=== PATIENT | male | born 1990 | race Caucasian/White ===

== ENCOUNTER 2016-10-23 08:51 | Emergency (ER) | payer MEDICARE ==
[~2016-10-23] VITALS: Ht 180.3 cm; Wt 90.7 kg
--- NOTE | 2016-10-23 09:22 | PHYS DOC ---
General Chief Complaint: FOOT INJURY PAIN Stated Complaint: FOOT PAIN Time Seen by MD: 09:07 Source: patient Exam Limitations: no limitations Problems: History of Present Illness Initial Comments Patient is a 26-year-old male who comes in the ED with a left foot plantar puncture wound. Patient states that yesterday he was working outdoors and accidentally stepped on a nail. He says the nail penetrated through his boot and into his forefoot. He says he doesn't think he got very deep because he immediately withdrew his foot from the pain. He had some minor discomfort at the time however this morning he noticed some redness and increased tenderness. He denies any drainage denies fever chills nausea or lethargy. He can't remember his last tetanus so he went to [facility] to try to get tetanus vaccination but they sent him here for further evaluation. He says he looked at the nail it was complete and he is confident there are no foreign bodies remaining in his foot. He is able to walk with some tenderness but doesn't want any pain medications. 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 No pre-arrival treatment he washed it off briefly last night. Onset: yesterday Severity: moderate Pain/Injury Location: left foot Method of Injury: other Modifying Factors: worse with jarring, worse with movement, improves with rest Allergies: Coded Allergies: No Known Drug Allergies (Unverified , 10/23/16) Past Medical History Medical History: no pertinent history Surgical History: noncontributory Social History Smoker: cigarettes Alcohol: occasionally Drugs: none Review of Systems Constitutional: denies chills, denies diaphoresis, denies fever, denies malaise Respiratory: denies cough, denies shortness of breath Cardiovascular: denies chest pain, denies palpitations Gastrointestinal: denies nausea, denies vomiting Musculoskeletal: see HPI Skin: see HPI Physical Exam General Appearance: WD/WN, no apparent distress HEENT: PERRL/EOMI, normal ENT inspection Neck: non-tender, supple Cardiovascular/Respiratory: normal peripheral pulses, no respiratory distress Back: no CVA tenderness, no vertebral tenderness Feet: left foot other (plantar puncture wound at the forefoot with 1 cm halo of erythema. The area is tender there is no purulence no discharge no induration no palpable subcutaneous foreign body.) Orders, Labs, Meds Wound was soaked in Betasept the patient received Rocephin and tetanus vaccination. The patient was advised to stop smoking. Departure Time of Disposition: :19 Disposition: 01 HOME, SELF-CARE Diagnosis: plantar puncture wound Condition: GOOD Patient Instructions: Puncture Wound, [id number], VIS, Tetanus, Diphtheria ( Td); Tetanus, Diphtheria, Pertussis (Tdap) - [facility] [place] Additional Instructions: He covered with sterile dressing until healed. Wash twice daily with soap and warm water. Change dressing and apply Bactroban ointment after each wash. Allow the wound to air dry 1 hour daily. [id number] Tylenol and ibuprofen as needed. Prescription: Bactrim DS, Bactroban ointment Stop smoking seek medical assistance if necessary. You'll need to follow up with a primary care doctor for recheck. As you do not have one ED staff can give you a list of doctors in the area and may be able to guide you to those accepting walk-in appointments. Follow-up with a doctor in 3-5 days for a wound check. Return to ED with new or changing symptoms. JOSI LANDRUM DO Oct 23, 2016 09:22
[2016-10-23] MEDS ORDERED: SULF1TAB24 PO (09:24)
[2016-10-23] MEDS ORDERED: MUPI15CR TP (09:24)
[2016-10-23] MEDS ORDERED: cefTRIAXone IM 1 GM VIAL IM ONE (09:40)
[2016-10-23] MEDS ORDERED: DIPHTH,PERTUSS(ACELL),TET TOX 0.5 ML DISP.SYRIN. VAX IM ONE (09:40)
[2016-10-23 10:00] VITALS: BP 123/72
== END 2016-10-23 10:02 | disposition home or self-care (01) ==
LOC: ER 08:51
DX: S91.332A Puncture wound without foreign body, left foot, initial encounter (principal); F17.210 Nicotine dependence, cigarettes, uncomplicated; W45.0XXA Nail entering through skin, initial encounter; Y93.89 Activity, other specified; Y99.8 Other external cause status; Y92.89 Other specified places as the place of occurrence of the external cause
CPT/HCPCS: 90471; 90715; 96372; 99284; J0696

== ENCOUNTER 2020-11-16 10:22 | Emergency (ER) | payer MEDICARE, OTHER ==
[~2020-11-16] VITALS: Ht 180.3 cm; Wt 104.0 kg
[~2020-11-16 10:22] MED LIST: MUPI15CR TP; SULF1TAB24 PO
[2020-11-16 10:30] VITALS: BP 145/81
--- NOTE | 2020-11-16 10:41 | PHYS DOC ---
Past History Past Medical History: No Pertinent History Past Surgical History: No Surgical History Alcohol Use: Occasionally Drug Use: None Adult General HPI HPI Patient is a 30-year-old male presenting for poison gabrielle exposure. He has known history of this, is highly allergic and has classic skin eruption after prior exposures. Reports he was helping a friend with yard work over the weekend and developed a nonspecific skin rash consistent with prior episodes of poison gabrielle exposure to bilateral upper extremities, bilateral lower extremities, trunk and some portions of his right face. No trouble breathing, no airway involvement or other concerning findings or reported symptoms beyond pruritus. He has not taken anything for this yet. Reports he typically receives a steroid shot and utilizes [id number] topical creams and shampoos etc. Review of Systems Review of Systems Fourteen body systems of review of systems have been reviewed. See HPI for pertinent positives and negative responses, other johansen all other systems are negative, non-pertinent or non-contributory Allergies Allergies Allergies Coded Allergies Type Severity Reaction Last Updated Verified No Known Drug Allergies 10/23/16 No Physical Exam Physical Exam Constitutional: Well developed, well nourished, no acute distress, non-toxic appearance. HENT: Normocephalic, atraumatic, bilateral external ears normal, oropharynx moist, no oral exudates, nose normal. Eyes: PERRLA, EOMI, conjunctiva normal, no discharge. Neck: Normal range of motion, no tenderness, supple, no stridor. Cardiovascular: Heart rate regular, sinus rhythm, no murmurs rubs or gallops Lungs & Thorax: Bilateral breath sounds clear to auscultation Abdomen: Bowel sounds normal, soft, no tenderness, no masses, no pulsatile masses. Nonsurgical abdomen, no peritoneal signs Skin: Warm, dry, no erythema, nonspecific skin rash on bilateral upper extremities, bilateral lower extremities, trunk and right cheek and upper eyelid consistent with poison gabrielle exposure all of which are nonweeping Back: No tenderness, no CVA tenderness. Extremities: No tenderness, no cyanosis, no clubbing, ROM intact, no edema. Neurologic: Alert and oriented X 3, grossly normal motor & sensory function, no focal deficits noted. Psychologic: Affect normal, judgement normal, mood normal. EKG EKG [] Radiology/Procedures Radiology/Procedures [] Heart Score C/O Chest Pain: No Risk Factors: Risk Factors: DM, Current or recent (<one month) smoker, HTN, HLP, family history of CAD, obesity. Risk Scores: Risk Factors: DM, Current or recent (<one month) smoker, HTN, HLP, family history of CAD, obesity. Course & Med Decision Making Course & Med Decision Making ABCs unremarkable. I disclosed entirety of ER findings and discussed most likely diagnosis of poison gabrielle exposure. 10 mg IM Decadron administered with instructions for continued supportive care practices. Plan of care discussed at length with need for close outpatient follow-up to review today's ER visit stressed. Strict return precautions were also discussed at length with good understanding verbalized by patient. Patient voiced understanding and agreement with the plan. Patient knows to come back for repeat evaluation if concerning signs or symptoms present prior to outpatient follow-up. Hemodynamically stable, ambulatory and well-appearing at time of disposition. Dragon Disclaimer Dragon Disclaimer This electronic medical record was generated, in whole or in part, using a voice recognition dictation system. Departure Departure: Impression: Primary Impression: Poison gabrielle dermatitis Disposition: HOME / SELF CARE / HOMELESS Condition: STABLE Referrals: PCP,NO (PCP) Patient Instructions: Poison Gabrielle Additional Instructions: You were seen for a rash. This is consistent with poison gabrielle exposure. You were given intramuscular steroids which should last for 3 days total, in the meantime you may take benadryl as needed for itching. Please continue using topical/kqlm-afr-aphphwy soothing body washes and topical creams such as Aquaphor for symptom control. Return to the ED if you develop redness, fever, swelling, pain, or worsening/new symptoms. KETURAH LEACH DO Nov 16, 2020 10:41
[2020-11-16] MEDS ORDERED: DEXAMETHASONE SOD PHOS 10 MG/ML VIAL. IM ONE (10:45)
[2020-11-16] MEDS ORDERED: DEXAMETHASONE SOD PHOS 10 MG/ML VIAL. ONE (10:55)
== END 2020-11-16 11:00 | disposition home or self-care (01) ==
LOC: ER 10:22
DX: L23.7 Allergic contact dermatitis due to plants, except food (principal)
CPT/HCPCS: 96372; 99283; J1100

== ENCOUNTER 2020-11-19 08:06 | Emergency (ER) | payer SELFPAY ==
[~2020-11-19] VITALS: Ht 180.3 cm; Wt 110.2 kg
[2020-11-19] MEDS ORDERED: PRED20TA PO (09:12)
--- NOTE | 2020-11-19 09:13 | PHYS DOC ---
Past History Past Medical History: No Pertinent History Past Surgical History: No Surgical History Alcohol Use: None Drug Use: None General Adult EDM: Chief Complaint: ALLERGIC REACTION HPI: HPI: Patient is a 30-year-old male coming in for continued pruritic rash after clearing out weeds and yard waste few days ago. Patient was seen 3 days ago and given a shot of IM Decadron which that did not help very much. Has been using calamine lotion. No other complaints. Review of Systems: Review of Systems: All other systems within normal limits except for as noted in the HPI Allergies: Allergies: Allergies Coded Allergies Type Severity Reaction Last Updated Verified No Known Drug Allergies 10/23/16 No Physical Exam: PE: Constitutional: Well developed, well nourished, no acute distress, non-toxic appearance. [] HENT: Normocephalic, atraumatic, bilateral external ears normal, nose normal. [] Eyes: PERRLA, conjunctiva normal, no discharge. [] Neck: No rigidity, supple, no stridor. [] Cardiovascular: Regular rate and rhythm, brisk cap refill [] Lungs & Thorax: Non labored symmetric respirations, no tachypnea or respiratory distress [] Abdomen: Soft, nondistended. Skin: Warm, dry, small vesicle rash on bilateral forearms and trunk. Some areas of excoriation in a linear pattern. Back: Unremarkable Extremities: No deformities, range of motion grossly intact, no lower extremity edema [] Neurologic: Alert and oriented X 3, no focal deficits noted. [] Psychologic: Affect normal, judgement normal, mood normal. [] Current Patient Data: Vital Signs: Vital Signs Date Time Temp Pulse Resp B/P (MAP) Pulse Ox O2 Delivery O2 Flow Rate FiO2 11/19/20 08:19 97.6 70 18 122/77 (92) 99 Room Air EKG: EKG: [] Radiology/Procedures: Radiology/Procedures: [] Heart Score: C/O Chest Pain: No Risk Factors: Risk Factors: DM, Current or recent (<one month) smoker, HTN, HLP, family history of CAD, obesity. Risk Scores: Score 0 - 3: 2.5% MACE over next 6 weeks - Discharge Home Score 4 - 6: 20.3% MACE over next 6 weeks - Admit for Clinical Observation Score 7 - 10: 72.7% MACE over next 6 weeks - Early Invasive Strategies Course & Med Decision Making: Course & Med Decision Making Pertinent Labs and Imaging studies reviewed. (See chart for details) [] Екатерина Disclaimer: Екатерина Disclaimer: This electronic medical record was generated, in whole or in part, using a voice recognition dictation system. Departure Departure: Impression: Primary Impression: Poison gabrielle dermatitis Disposition: HOME / SELF CARE / HOMELESS Condition: STABLE Referrals: PCP,NO (PCP) Patient Instructions: Poison Gabrielle Scripts Prednisone (PREDNISONE) 20 Mg Tablet 1 TAB PO UD for steroid for 12 Days, #24 TAB 60 mg x 4 days, 40 mg x 4 days, 20 mg x 4 days. Prov: JOY BOOGIE MD 11/19/20 JOY BOOGIE MD Nov 19, 2020 09:13
[2020-11-19 09:20] VITALS: BP 116/71
== END 2020-11-19 09:25 | disposition home or self-care (01) ==
LOC: ER 08:06
DX: L23.7 Allergic contact dermatitis due to plants, except food (principal)
CPT/HCPCS: 99283

== ENCOUNTER 2020-12-25 06:55 | Emergency (ER) | payer SELFPAY ==
[~2020-12-25] VITALS: Ht 180.3 cm; Wt 95.4 kg
[~2020-12-25 06:55] MED LIST changes: +PRED20TA PO
[2020-12-25 06:57] VITALS: BP 104/53
[2020-12-25] MEDS ORDERED: KETOROLAC 60 MG/2 ML VIAL. IM ONE (07:06)
[2020-12-25] MEDS ORDERED: ONDANSETRON PF 4 MG/2 ML VIAL. ONE (07:10)
[2020-12-25] MEDS ORDERED: ONDANSETRON PF 4 MG/2 ML VIAL. IVP ONE (07:15)
[2020-12-25] MEDS ORDERED: KETOROLAC 15 MG/ML VIAL. IVP ONE (07:15)
[2020-12-25] MEDS ORDERED: IOHEXOL 300 MG/ML 75 ML VIAL. IV ONE (07:15)
[2020-12-25] MEDS ORDERED: IV NORMAL SALINE 1,000ML 1,000 ML IV ONE (07:15)
--- NOTE | 2020-12-25 07:20 | PHYS DOC ---
Past History Past Medical History: No Pertinent History Past Surgical History: No Surgical History Alcohol Use: None Drug Use: None Adult General HPI HPI Patient is a 30-year-old male presenting for right flank pain. Onset was 1 hour ago and awoke him from sleep. Nothing known makes better or worse. Reports sharp stabbing pain to right flank that radiates into her right groin. Severity of pain is 10/10 and constant. Reports he has been nauseous and had several episodes of nonbloody nonbilious emesis since symptom onset. He has never felt anything like this. Admits smoking weed but no other medical issues, no known medical diagnoses and takes no medications on a daily basis. He has no history of any intra-abdominal abnormalities or surgeries Review of Systems Review of Systems Fourteen body systems of review of systems have been reviewed. See HPI for pertinent positives and negative responses, other johansen all other systems are negative, non-pertinent or non-contributory Current Medications Current Medications Current Medications Medications (Trade) Dose Ordered Sig/Nguyen Start Time Stop Time Status Last Admin Dose Admin Fentanyl Citrate (Fentanyl 2ml Vial) 100 mcg STK-MED ONCE 12/25/20 07:06 12/25/20 07:06 DC Ketorolac Tromethamine (Toradol Im) 60 mg STK-MED ONCE 12/25/20 07:06 12/25/20 07:06 AK Allergies Allergies Allergies Coded Allergies Type Severity Reaction Last Updated Verified No Known Drug Allergies 10/23/16 No Physical Exam Physical Exam Constitutional: Well developed, well nourished, in moderate distress due to pain but is overall nontoxic in appearance HENT: Normocephalic, atraumatic, bilateral external ears normal, oropharynx moist, no oral exudates, nose normal. Eyes: PERRLA, EOMI, conjunctiva normal, no discharge. Neck: Normal range of motion, no tenderness, supple, no stridor. Cardiovascular: Heart rate regular, sinus rhythm, no murmurs rubs or gallops Lungs & Thorax: Bilateral breath sounds clear to auscultation Abdomen: Bowel sounds normal, soft, suprapubic tenderness with palpation, guarding present without rebound no masses, no pulsatile masses. Nonsurgical abdomen, no peritoneal signs Skin: Warm, dry, no erythema, no rash. Back: No tenderness, right CVA tenderness Extremities: No tenderness, no cyanosis, no clubbing, ROM intact, no edema. Neurologic: Alert and oriented X 3, grossly normal motor & sensory function, no focal deficits noted. Psychologic: Anxious affect and mood Current Patient Data Vital Signs Vital Signs Date Time Temp Pulse Resp B/P (MAP) Pulse Ox O2 Delivery O2 Flow Rate FiO2 12/25/20 07:14 20 96 Vital Signs Date Time Temp Pulse Resp B/P (MAP) Pulse Ox O2 Delivery O2 Flow Rate FiO2 12/25/20 07:14 20 96 Lab Results Laboratory Tests Test 12/25/20 07:06 12/25/20 07:46 White Blood Count 11.9 x10^3/uL Red Blood Count 5.52 x10^6/uL Hemoglobin 16.0 g/dL Hematocrit 47.6 % Mean Corpuscular Volume 86 fL Mean Corpuscular Hemoglobin 29 pg Mean Corpuscular Hemoglobin Concent 34 g/dL Red Cell Distribution Width 13.9 % Platelet Count 311 x10^3/uL Neutrophils (%) (Auto) 53 % Lymphocytes (%) (Auto) 36 % Monocytes (%) (Auto) 7 % Eosinophils (%) (Auto) 3 % Basophils (%) (Auto) 1 % Neutrophils # (Auto) 6.3 x10^3uL Lymphocytes # (Auto) 4.2 x10^3/uL Monocytes # (Auto) 0.9 x10^3/uL Eosinophils # (Auto) 0.4 x10^3/uL Basophils # (Auto) 0.1 x10^3/uL Sodium Level 139 mmol/L Potassium Level 4.1 mmol/L Chloride Level 103 mmol/L Carbon Dioxide Level 28 mmol/L Anion Gap 8 Blood Urea Nitrogen 14 mg/dL Creatinine 1.0 mg/dL Estimated GFR (Cockcroft-Gault) 88.3 BUN/Creatinine Ratio 14 Glucose Level 112 mg/dL Calcium Level 9.3 mg/dL Total Bilirubin 0.5 mg/dL Aspartate Amino Transf (AST/SGOT) 27 U/L Alanine Aminotransferase (ALT/SGPT) 58 U/L Alkaline Phosphatase 111 U/L Total Protein 8.0 g/dL Albumin 4.2 g/dL Albumin/Globulin Ratio 1.1 Lipase 85 U/L Urine Collection Type Unknown Urine Color Yellow Urine Clarity Clear Urine pH 5.0 Urine Specific [place] 1.020 Urine Protein Neg Urine Glucose (UA) Neg mg/dL Urine Ketones (Stick) Neg mg/dL Urine Blood Large Urine Nitrite Neg Urine Bilirubin Neg Urine Urobilinogen Dipstick 0.2 mg/dL Urine Leukocyte Esterase Neg Urine RBC 11-20 /HPF Urine WBC Occ /HPF Urine Bacteria 0 /HPF Urine Mucus Marked /LPF Current Medications Medications (Trade) Dose Ordered Sig/Nguyen Route PRN Reason Start Time Stop Time Status Last Admin Dose Admin Ketorolac Tromethamine (Toradol Im) 60 mg STK-MED ONCE IM 12/25/20 07:06 12/25/20 07:06 DC Fentanyl Citrate (Fentanyl 2ml Vial) 100 mcg STK-MED ONCE .ROUTE 12/25/20 07:06 12/25/20 07:06 DC Sodium Chloride 1,000 ml @ 1,000 mls/hr 1X ONCE IV 12/25/20 07:15 12/25/20 08:14 DC 12/25/20 07:13 Fentanyl Citrate (Fentanyl 2ml Vial) 50 mcg 1X ONCE IVP 12/25/20 07:15 12/25/20 07:18 DC 12/25/20 07:14 Ketorolac Tromethamine (Toradol 15mg Vial) 15 mg 1X ONCE IVP 12/25/20 07:15 12/25/20 07:18 DC Ondansetron HCl (Zofran) 4 mg STK-MED ONCE .ROUTE 12/25/20 07:10 12/25/20 07:11 DC Ondansetron HCl (Zofran) 4 mg 1X ONCE IVP 12/25/20 07:15 12/25/20 07:18 DC 12/25/20 07:13 Iohexol (Omnipaque 300 Mg/ml) 75 ml 1X ONCE IV 12/25/20 07:15 12/25/20 07:18 DC 12/25/20 07:31 Fentanyl Citrate (Fentanyl 2ml Vial) 50 mcg 1X ONCE IVP 12/25/20 07:45 12/25/20 07:46 DC Tamsulosin HCl (Flomax) 0.4 mg 1X ONCE PO 12/25/20 08:30 12/25/20 08:31 DC EKG EKG [] Radiology/Procedures Radiology/Procedures EXAM: CT Abdomen and Pelvis with IV contrast CLINICAL HISTORY: right abd/flank pain COMPARISON: none TECHNIQUE: Helical CT of the abdomen and pelvis was performed following the ad ministration of intravenous contrast. Axial, coronal and sagittal reformatted images were generated. PQRS compliance statement - One or more of the following individualized dose reduction techniques were utilized for this study: 1. Automated exposure control 2. Adjustment of the mA and/or kV according to patient size 3. Use of iterative reconstruction technique FINDINGS: Lower Chest: Linear and patchy opacities lung bases likely scarring/atelectasis. Abdomen and Pelvis: Hepatic hypoattenuation, fatty liver. Gallbladder is normal. No biliary duct dilatation. Pancreas is unremarkable. Spleen is normal in appearance. Adrenal gl ands are unremarkable. Mildly delayed right nephrogram. No focal renal lesion. A 3 mm calculus is seen at the right ureterovesicular junction with mild right hydronephrosis and hydroureter. No left hydronephrosis or hydroureter. Appendix is normal. Moderate colonic stool content is seen. No small or large bowel dilatation. No bowel obstruction. No abdominal or pelvic ascites. No abdominal or pelvic lymphadenopathy. Sclerotic focus bilateral femoral neck, bone island. Trace fat-containing periumbilical hernia. Bones: No aggressive osseous lesion is seen. IMPRESSION: 1. Punctate calculus is seen at the right ureterovesicular junction with mild right hydronephrosis and hydroureter. Associated with nephrograms. 2. Hepatic hypoattenuation, fatty liver. Electronically signed by: Alen Mcfarland MD (12/25/2020 7:47 AM) [facility] Heart Score C/O Chest Pain: No Risk Factors: Risk Factors: DM, Current or recent (<one month) smoker, HTN, HLP, family history of CAD, obesity. Risk Scores: Risk Factors: DM, Current or recent (<one month) smoker, HTN, HLP, family history of CAD, obesity. Course & Med Decision Making Course & Med Decision Making ABCs unremarkable HPI physical exam and comprehensive ER work-up nonconcerning for any emergent or surgical issues Patient has right-sided kidney stone with mild hydronephrosis and hydroureter. 3 mm in size and should spontaneously pass without surgical intervention. No indication for further diagnostic work-up or hospital transfer Pain controlled with ER intervention. Supportive care practices, Flomax and pain control advised with close outpatient PCP follow-up. Straining of urine advised. Disclose there might be a role for urology follow-up in outpatient setting as indicated by PCP Strict return precautions discussed with understanding verbalized by patient. All questions and concerns addressed prior to ER departure Екатерина Disclaimer Екатерина Disclaimer This electronic medical record was generated, in whole or in part, using a voice recognition dictation system. Departure Departure: Impression: Primary Impression: Right kidney stone Disposition: HOME / SELF CARE / HOMELESS Condition: STABLE Referrals: PCP,STEPHANY (PCP) Patient Instructions: Kidney Stones Additional Instructions: You were seen for flank pain and bloody urine. You most likely have a kidney stone that will hopefully pass. We are writing you a prescription for pain medication. You should strain your urine to look for the stone. You will need to follow up your primary care physician and contact them first thing on Sunday to review ER visit today and potential need for outpatient urologist follow-up. You should return to the ED if you develop worsening pain, fever, continued bloody urine, lightheadedness, shortness of breath, chest pain, or any other new or concerning symptoms. Scripts Hydrocodone Bit/Acetaminophen (HYDROCODONE-APAP 7.5-325 ) 1 Each Tablet 1 TAB PO PRN Q6HRS PRN for PAIN, #14 TAB 0 Refills Prov: KETURAH LEACH DO 12/25/20 Tamsulosin Hcl (FLOMAX) 0.4 Mg Cap.er.24h 1 CAP PO DAILY for kidney stone, #30 CAP 0 Refills Prov: KETURAH LEACH DO 12/25/20 KETURAH LEACH DO Dec 25, 2020 07:20
[2020-12-25 07:43] LABS: BASO # 0.1 x10^3/uL (0.0-0.2); BASO % 1 % (0-3); EOS # 0.4 x10^3/uL (0.0-0.7); EOS % 3 % (0-3); HEMATOCRIT 47.6 % (39.0-53.0); LYMPH # 4.2 x10^3/uL (1.0-4.8); LYMPH % 36 % (24-48); MEAN CORPUSCULAR HEMOGLOBIN 29 pg (25-35); MEAN CORPUSCULAR HGB CONC 34 g/dL (31-37); MEAN CORPUSCULAR VOLUME 86 fL (79-100); MONO # 0.9 x10^3/uL (0.0-1.1); MONO % 7 % (0-9); NEUT # 6.3 x10^3uL (1.8-7.7); NEUT % 53 % (31-73); PLATELET COUNT 311 x10^3/uL (140-400); RED BLOOD COUNT 5.52 x10^6/uL (4.30-5.70); RED CELL DISTRIBUTION WIDTH 13.9 % (11.5-14.5); WHITE BLOOD COUNT 11.9 x10^3/uL (4.0-11.0)
[2020-12-25 07:44] LABS: CALCIUM 9.3 mg/dL (8.5-10.1); GFR 88.3; POTASSIUM 4.1 mmol/L (3.5-5.1)
[2020-12-25 07:49] LABS: ALBUMIN 4.2 g/dL (3.4-5.0); ALBUMIN/GLOBULIN RATIO 1.1 (1.0-1.7); TOTAL BILIRUBIN 0.5 mg/dL (0.2-1.0)
--- NOTE | 2020-12-25 07:49 | RAD ---
EXAM: CT Abdomen and Pelvis with IV contrast CLINICAL HISTORY: right abd/flank pain COMPARISON: none TECHNIQUE: Helical CT of the abdomen and pelvis was performed following the administration of intrave nous contrast. Axial, coronal and sagittal reformatted images were generated. PQRS compliance statement - One or more of the following individualized dose reduction techniques wer e utilized for this study: 1. Automated exposure control 2. Adjustment of the mA and/or kV according to patient size 3. Use of iterative reconstruction technique FINDINGS: Lower Chest: Linear and patchy opacities lung bases likely scarring/atelectasis. Abdomen and Pelvis: Hepatic hypoattenuation, fatty liver. Gallbladder is normal. No biliary duct dilatation. Pancreas is unremarkable. Spleen is normal in appearance. Adrenal glands are unremarkable. Mildly delayed right n ephrogram. No focal renal lesion. A 3 mm calculus is seen at the right ureterovesicular junction with mild right hydronephrosis and hydroureter. No left hydronephrosis or hydroureter. Appendix is normal. Moderate colonic stool content is seen. No small or large bowel dilatation. No theresa wel obstruction. No abdominal or pelvic ascites. No abdominal or pelvic lymphadenopathy. Sclerotic focus bilateral fem oral neck, bone island. Trace fat-containing periumbilical hernia. Bones: No aggressive osseous lesion is seen. IMPRESSION: 1. Punctate calculus is seen at the right ureterovesicular junction with mild right hydronephrosis a nd hydroureter. Associated with nephrograms. 2. Hepatic hypoattenuation, fatty liver. Electronically signed by: Alen Mcfarland MD (12/25/2020 7:47 AM) [facility]
[2020-12-25] MEDS ORDERED: TAMSULOSIN 0.4 MG CAP.ER.24H. PO ONE (08:30)
[2020-12-25 08:40] LABS: BACTERIA,URINE 0 /HPF (0-FEW); BILIRUBIN,URINE NEG (NEG); CLARITY,URINE CLEAR; COLOR,URINE YELLOW; GLUCOSE,URINE NEG (NEG); NITRITE,URINE NEG (NEG); UROBILINOGEN,URINE 0.2 mg/dL (0.2 mg/dL); WBC,URINE OCC /HPF (0-4)
[2020-12-25] MEDS ORDERED: HYDR-2765 PO (08:55)
[2020-12-25] MEDS ORDERED: TAMS0.4C97 PO (08:55)
[2020-12-25] MEDS ORDERED: HYDROcodone/APAP 5/325MG 1 TAB TABLET PO ONE (10:45)
== END 2020-12-25 11:26 | disposition home or self-care (01) ==
LOC: ER 06:55
DX: N20.0 Calculus of kidney (principal)
CPT/HCPCS: 36415; 74177; 80053; 81001; 83690; 85025; 96361; 96374; 96375; 99285; J2405; J3010; J7030; Q9967

== ENCOUNTER 2021-01-14 00:01 | Emergency (ER) | payer OTHER ==
[~2021-01-14] VITALS: Ht 180.3 cm; Wt 110.0 kg
[~2021-01-14 00:01] MED LIST changes: +HYDR-2765 PO; +TAMS0.4C97 PO
[2021-01-14] MEDS ORDERED: ONDA4TAB12 PO (00:53)
[2021-01-14] MEDS ORDERED: CYCL10TA19 PO (00:53)
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
[2021-01-14] MEDS ORDERED: CYCLOBENZAPRINE 10 MG TABLET. PO ONE (01:00)
[2021-01-14] MEDS ORDERED: ONDANSETRON ODT 4 MG TAB.RAPDIS PO ONE (01:00)
[2021-01-14] MEDS ORDERED: HYDROcodone/APAP 7.5/325MG 1 TAB TABLET PO ONE (01:30)
[2021-01-14 01:55] VITALS: BP 97/50
== END 2021-01-14 01:55 | disposition home or self-care (01) ==
LOC: ER 00:01
DX: R25.2 Cramp and spasm (principal); R51.9 Headache, unspecified; M54.2 Cervicalgia; M79.10 Myalgia, unspecified site; R11.10 Vomiting, unspecified; V98.8XXA Other specified transport accidents, initial encounter; Y93.89 Activity, other specified; Y92.89 Other specified places as the place of occurrence of the external cause; Y99.8 Other external cause status
CPT/HCPCS: 99284; Q0162